=== PATIENT | female | born 1980 | race Caucasian/White ===

== ENCOUNTER 2018-02-01 08:37 | Emergency (ER) | payer MEDICAID ==
[2018-02-01] MEDS ORDERED: NORMAL SALINE 1000 ML 1,000 ML IV ONE (09:28)
[2018-02-01] MEDS ORDERED: FENTANYL CITRATE INJ/PF 100 MCG/2 ML AMPUL IV ONE (09:28)
[2018-02-01 10:13] LABS: ABSOLUTE LYMPHOCYTES (AUTO) 1.3 10^3/uL (0.5-4.7); ABSOLUTE MONOCYTES (AUTO) 0.4 10^3/uL (0.1-1.4); ABSOLUTE NEUT (AUTO) 5.8 10^3/uL (1.7-8.2); BASOPHILS % (AUTO) 0.5 % (0-2); EOSINOPHILS % (AUTO) 0.6 % (0-6); HEMATOCRIT 40.3 % (36.0-47.0); HEMOGLOBIN 13.8 g/dL (12.0-15.5); LYMPHOCYTES % (AUTO) 16.9 % (13-45); MEAN CORPUSCULAR HEMOGLOBIN 31.6 pg (27.0-33.4); MEAN CORPUSCULAR HGB CONC 34.2 g/dL (32.0-36.0); MEAN CORPUSCULAR VOLUME 92 fl (80-97); MONOCYTES % (AUTO) 5.8 % (3-13); PLATELET COUNT 347 10^3/uL (150-450); RED BLOOD COUNT 4.37 10^6/uL (3.72-5.28); RED CELL DISTRIBUTION WIDTH 13.3 % (11.5-14.0); SEGMENTED NEUTROPHILS % (AUTO) 76.2 % (42-78); TOTAL CELLS COUNTED % (AUTO) 100 %; WHITE BLOOD COUNT 7.7 10^3/uL (4.0-10.5)
[2018-02-01] MEDS ORDERED: ONDANSETRON HCL INJ/PF 4 MG/2 ML SDV IV ONE (10:17)
[2018-02-01] MEDS ORDERED: ONDANSETRON HCL INJ/PF 4 MG/2 ML SDV ONE (10:20)
[2018-02-01 10:24] LABS: ALANINE AMINOTRANSFERASE 24 U/L (9-52); ALBUMIN 4.2 g/dL (3.5-5.0); ALKALINE PHOSPHATASE 33 U/L (38-126); ANION GAP 11 (5-19); ASPARTATE AMINO TRANSFERASE 14 U/L (14-36); BILIRUBIN,DIRECT 0.1 mg/dL (0.0-0.4); BILIRUBIN,TOTAL 0.4 mg/dL (0.2-1.3); BLOOD UREA NITROGEN 12 mg/dL (7-20); CALCIUM 9.7 mg/dL (8.4-10.2); CARBON DIOXIDE 26 mmol/L (22-30); CHLORIDE 104 mmol/L (98-107); GLUCOSE 89 mg/dL (75-110); POTASSIUM 4.5 mmol/L (3.6-5.0); SODIUM 141.2 mmol/L (137-145); TOTAL PROTEIN 6.9 g/dL (6.3-8.2)
--- NOTE | 2018-02-01 11:56 | ER Document Report ---
ED GI/ - General Chief Complaint: Vaginal Bleeding Stated Complaint: VAGINAL BLEEDING Time Seen by Provider: 02/01/18 09:01 Mode of Arrival: Ambulatory Information source: Patient Notes: Patient states that she is currently 10 weeks and is concerned about an impending miscarriage. Patient saw the [employer]INEER yesterday and was given Cytotec to induce miscarriage. Patient did not take the medication as she started to have vaginal bleeding and cramping. Patient denies any fever or urinary symptoms. Patient denies any lightheadedness or dizziness. TRAVEL OUTSIDE OF THE [place] IN LAST 30 DAYS: No - HPI Patient complains to provider of: Pelvic pain, , Vaginal bleeding Onset: Yesterday Timing/Duration: Worse Quality of pain: Cramping, Sharp Pain Level: 4 Location: Pelvis Vaginal bleeding (Compared to normal period): Heavier, Passing clots Menstrual period history: Associated symptoms: denies: Dysuria, Fever, Nausea, Urinary hesitancy, Urinary frequency, Urinary retention, Vomiting Exacerbated by: Denies Relieved by: Denies Similar symptoms previously: No Recently seen / treated by doctor: Yes - Related Data Allergies/Adverse Reactions: No Known Allergies Allergy (Unverified 02/01/18 08:44) Past Medical History - General Information source: Patient Last Menstrual Period: 10 weeks - Social History Smoking Status: Current Every Day Smoker Chew tobacco use (# tins/day): No Frequency of alcohol use: Occasional Drug Abuse: None Occupation: None Lives with: Family Family History: Reviewed & Not Pertinent Patient has suicidal ideation: No Patient has homicidal ideation: No - Medical History Medical History: Negative Renal/ Medical History: Denies: Hx Peritoneal Dialysis Past Surgical History: Reports: Hx Tonsillectomy Review of Systems - Review of Systems Constitutional: No symptoms reported. denies: Fever, Recent illness EENT: No symptoms reported Cardiovascular: No symptoms reported. denies: Chest pain, Dizziness, Lightheaded Respiratory: No symptoms reported Gastrointestinal: Abdominal pain. denies: Vomiting Genitourinary: No symptoms reported. denies: Dysuria Female Genitourinary: , Vaginal bleeding Musculoskeletal: No symptoms reported Skin: No symptoms reported Hematologic/Lymphatic: No symptoms reported Neurological/Psychological: No symptoms reported. denies: Headaches Physical Exam - Vital signs Vitals: Temp Pulse Resp BP Pulse Ox 98 F 97 16 120/78 100 02/01/18 08:46 02/01/18 08:46 02/01/18 08:46 02/01/18 08:46 02/01/18 08:46 - General General appearance: Appears well, Alert In distress: None - HEENT Head: Normocephalic Eyes: Normal Conjunctiva: Normal Nasal: Normal Mouth/Lips: Normal Mucous membranes: Normal Neck: Normal, Supple. No: Lymphadenopathy - Respiratory Respiratory status: No respiratory distress Chest status: Nontender Breath sounds: Normal. No: Rales, Rhonchi, Stridor, Wheezing Chest palpation: Normal - Cardiovascular Rhythm: Regular Heart sounds: S1 appreciated, S2 appreciated Murmur: No - Abdominal Inspection: Normal Distension: No distension Bowel sounds: Normal Tenderness: Tender - lower pelvic Organomegaly: No organomegaly - Genitourinary External exam: Normal Speculum exam: Products of conception Vaginal bleeding: Mild Bimanuel exam: Cervical motion tender - Back Back: Normal, Nontender. No: CVA tenderness - Extremities General upper extremity: Normal inspection, Normal strength General lower extremity: Normal inspection, Normal strength - Neurological Neuro grossly intact: Yes Cognition: Normal [place] Coma Scale Eye Opening: Spontaneous [place] Coma Scale Verbal: Oriented [place] Coma Scale Motor: Obeys Commands [place] Coma Scale Total: 15 - Psychological Associated symptoms: Normal affect, Normal mood - Skin Skin Temperature: Warm Skin Moisture: Dry Skin Color: Normal Course - Re-evaluation Re-evalutation: 02/01/18 13:[address] Damian regarding ultrasound report findings. States that endometrial thickening can be seen whenever someone is actively miscarrying. Advises having patient follow up in the office next week and having patient just hold on taking any Cytotec at home as she is spontaneously miscarrying at this time. 02/01/18 13:28 Discussed plan of care with patient, patient verbalized understanding and is agreeable. Patient declines needing any pain medications at this time. Patient states she is feeling much better after passing what appeared to be products of conception. - Vital Signs Vital signs: Temp Pulse Resp BP Pulse Ox 98.0 F 73 18 124/81 100 02/01/18 13:36 02/01/18 13:36 02/01/18 13:36 02/01/18 13:36 02/01/18 13:36 - Laboratory Result Diagrams: 02/01/18 09:27 02/01/18 09:49 Laboratory results interpreted by me: 02/01/18 09:49 Alkaline Phosphatase 33 L Beta HCG, Quant 3725.90 H 02/01/18 13:25 Labs- Entire Visit 02/01/18 02/01/18 02/01/18 09:27 09:49 09:49 WBC 7.7 RBC 4.37 Hgb 13.8 Hct 40.3 MCV 92 MCH 31.6 MCHC 34.2 RDW 13.3 Plt Count 347 Seg Neutrophils % 76.2 Lymphocytes % 16.9 Monocytes % 5.8 Eosinophils % 0.6 Basophils % 0.5 Absolute Neutrophils 5.8 Absolute Lymphocytes 1.3 Absolute Monocytes 0.4 Absolute Eosinophils 0.0 Absolute Basophils 0.0 Sodium 141.2 Potassium 4.5 Chloride 104 Carbon Dioxide 26 Anion Gap 11 BUN 12 Creatinine 0.55 Est GFR ( Amer) > 60 Est GFR (Non-Af Amer) > 60 Glucose 89 Calcium 9.7 Total Bilirubin 0.4 Direct Bilirubin 0.1 Neonat Total Bilirubin Not Reportable Neonat Direct Bilirubin Not Reportable Neonat Indirect Bili Not Reportable AST 14 ALT 24 Alkaline Phosphatase 33 L Total Protein 6.9 Albumin 4.2 Beta HCG, Quant 3725.90 H Total Beta HCG POSITIVE Blood Type A NEGATIVE Antibody Screen NEGATIVE Rhogam Indicated RHOGAM REQUESTED - Diagnostic Test Radiology reviewed: Reports reviewed Discharge - Discharge Clinical Impression: Miscarriage Condition: Stable Disposition: HOME, SELF-CARE Instructions: Miscarriage (OM) Additional Instructions: Return immediately for any new or worsening symptoms Followup with your primary care provider, call tomorrow to make a followup appointment Follow-up with your lens cementer next week for a recheck. Do not take the Cytotec that you were prescribed yesterday Referrals: [facility] [Provider Group] - Follow up in 3-5 days
--- NOTE | 2018-02-01 12:50 | RADIOLOGY REPORT (SQ) ---
EXAM DESCRIPTION: U/S OB TRANSVAGINAL W/O DOP COMPLETED DATE/TIME: 02/01/2018 12:21 pm REASON FOR STUDY: pelvic pain, vag bleeding COMPARISON: None. TECHNIQUE: Transvaginal static and realtime grayscale images acquired of the pelvis. Additional josh cted spectral and color Doppler images recorded. All images stored on PACs. [id number],725 LIMITATIONS: Unable to visualize the right adnexa due to bowel gas FINDINGS: UTERUS: No visualized intrauterine . Endometrial stripe is thickened and heterog eneous, measuring up to 2.5 cm in thickness. No intrauterine gestational sac is identified. Cervix is closed, 2.8 cm in length. RIGHT ADNEXA: Not visualized LEFT ADNEXA: Normal ovary with normal vascular flow. Left ovary 2.7 x 2 x 1.2 cm in size with 1 cm f ollicular cyst. No adnexal free fluid. No adnexal masses. FREE FLUID: None. OTHER: No other significant finding. IMPRESSION: NO VISUALIZED INTRA- OR EXTRAUTERINE . ECTOPIC OR GESTATIONAL TROPHOBLASTIC DISEASE CANNOT BE EXCLUDED. FOLLOW-UP ULTRASOUND AND SERIAL BHCG LEVELS STRONGLY RECOMMENDED TO ACCURATELY ASSESS STATU S. COMMENT: REPORT CALLED TO DR. MUÑOZ IN THE EMERGENCY ROOM TECHNICAL DOCUMENTATION: JOB ID: [id number]- All Rights Reserved Reading location - IP/workstation name: [email or web address]
[2018-02-01 13:40] VITALS: BP 124/81
== END 2018-02-01 13:40 | disposition home or self-care (01) ==
LOC: ER 08:37
DX: O03.9 Complete or unspecified spontaneous abortion without complication (principal); R10.2 Pelvic and perineal pain; F17.200 Nicotine dependence, unspecified, uncomplicated
CPT/HCPCS: 99284; 96372; 96361; 96374; 96375; 86900; 86901; 36415; 86850; 84702; 85025; 80053; 88305 ×2; 76817; J2790; J3010; J2405; J7030

== ENCOUNTER 2018-02-09 23:47 | Emergency (ER) | payer MEDICAID ==
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
[2018-02-10] MEDS ORDERED: ONDANSETRON 4 MG TAB.RAPDIS PO ONE (01:21)
[2018-02-10] MEDS ORDERED: FAMOTIDINE 20 MG TABLET PO ONE (01:21)
[2018-02-10 01:38] VITALS: BP 97/58
== END 2018-02-10 01:30 | disposition home or self-care (01) ==
LOC: ER 23:47
DX: F10.929 Alcohol use, unspecified with intoxication, unspecified (principal)
CPT/HCPCS: 99284; 82962; J3490; S0119